=== PATIENT | female | born 1960 | race Caucasian/White ===

== ENCOUNTER 2020-06-04 10:51 | Emergency (ER) | payer BC ==
[2020-06-04] MEDS ORDERED: CYCLOBENZAPRINE10 MG PO (12:44)
[2020-06-04] MEDS ORDERED: NAPROSYN500 MG PO (12:44)
== END 2020-06-04 13:25 | disposition home or self-care (01) ==
LOC: ER1 10:51
DX: M51.36 Other intervertebral disc degeneration, lumbar region (principal); F17.290 Nicotine dependence, other tobacco product, uncomplicated
CPT/HCPCS: 72131; 96374; 96375; 99284; J1100; J1885